=== PATIENT | male | born 1975 | race Caucasian/White ===

== ENCOUNTER 2019-03-27 08:49 | Outpatient (REF) | payer BC, SELFPAY ==
[2019-03-27 22:02] LABS: Anion Gap 10.6 mmol/L (3-11); BUN 17 mg/dL (7-18); CO2 28.4 mmol/L (21.0-32.0); CREATININE 0.98 mg/dL (0.70-1.30); Calcium 9.4 mg/dL (8.5-10.1); Chloride 105 mmol/L (98-107); Cholesterol 235 mg/dL (50-200); Glucose 116 mg/dL (70-100); HDL Cholesterol 41 mg/dL (40-60); LDL CHOLESTEROL 169 mg/dL (<100); Potassium 4.5 mmol/L (3.5-5.1); Sodium 144 mmol/L (136-145); Triglyceride 129 mg/dL (30-150)
== END 2019-03-27 09:09 ==
LOC: NCHCN 08:49
PROVIDERS: PCP Internal Medicine; Visit Provider Internal Medicine
DX: I10 Essential (primary) hypertension (principal); E78.5 Hyperlipidemia, unspecified
CPT/HCPCS: 80048; 80061; 83721

== ENCOUNTER 2019-04-23 10:49 | Outpatient (REF) | payer BC, SELFPAY ==
[2019-04-23 21:56] LABS: Anion Gap 13.2 mmol/L (3-11); BUN 15 mg/dL (7-18); CO2 24.8 mmol/L (21.0-32.0); CREATININE 0.95 mg/dL (0.70-1.30); Calcium 9.4 mg/dL (8.5-10.1); Chloride 103 mmol/L (98-107); Glucose 109 mg/dL (70-100); Potassium 4.3 mmol/L (3.5-5.1); Sodium 141 mmol/L (136-145)
== END 2019-04-23 11:09 ==
LOC: NCHCN 10:49
PROVIDERS: PCP Internal Medicine; Visit Provider Internal Medicine
DX: I10 Essential (primary) hypertension (principal)
CPT/HCPCS: 80048

== ENCOUNTER 2019-08-09 11:14 | Outpatient (REF) | payer BC, SELFPAY ==
[2019-08-09 21:31] LABS: Anion Gap 12.5 mmol/L (3-11); BUN 13 mg/dL (7-18); CO2 28.5 mmol/L (21.0-32.0); CREATININE 1.02 mg/dL (0.70-1.30); Calcium 9.4 mg/dL (8.5-10.1); Calculated LDL 84 mg/dL; Chloride 100 mmol/L (98-107); Cholesterol 149 mg/dL (50-200); Glucose 116 mg/dL (70-100); HDL Cholesterol 41 mg/dL (40-60); Potassium 3.7 mmol/L (3.5-5.1); Sodium 141 mmol/L (136-145); Triglyceride 120 mg/dL (30-150)
== END 2019-08-09 11:34 ==
LOC: NCHCN 11:14
PROVIDERS: PCP Internal Medicine; Visit Provider Internal Medicine
DX: I10 Essential (primary) hypertension (principal)
CPT/HCPCS: 80048; 80061

== ENCOUNTER 2020-04-03 10:07 | Outpatient (REF) | payer BC, SELFPAY ==
[2020-04-03 21:04] LABS: Anion Gap 9.3 mmol/L (3-11); BUN 16 mg/dL (7-18); CO2 26.7 mmol/L (21.0-32.0); CREATININE 0.96 mg/dL (0.70-1.30); Calcium 9.1 mg/dL (8.5-10.1); Chloride 105 mmol/L (98-107); Glucose 117 mg/dL (74-106); Potassium 4.2 mmol/L (3.5-5.1); Sodium 141 mmol/L (136-145)
[2020-04-03 21:14] LABS: Hemoglobin A1C 5.8 % (3.8-5.6)
== END 2020-04-03 10:27 ==
LOC: NCHCN 10:07
PROVIDERS: PCP Internal Medicine; Visit Provider Internal Medicine
DX: R73.03 Prediabetes (principal); I10 Essential (primary) hypertension
CPT/HCPCS: 80048; 83036

== ENCOUNTER 2020-09-22 11:07 | Emergency (ER) | payer BC, SELFPAY ==
[2020-09-22 11:20] VITALS: BP 163/92; PULSE 91; RESP 16; TEMP 36.3; O2SAT 97
--- NOTE | 2020-09-22 11:21 | W.ED.GENAD ---
Discharge Plan Disposition Patient Disposition: HOME Condition: Stable Discharge Details Clinical Impression: Postoperative edema, Left leg swelling, S/P hip replacement Primary Care Provider: Marianela Esteban ED Provider: Marietta Beckford Home Meds and New Rx's Prescriptions: Continued losartan 50 mg tablet 50 mg PO DAILY RF: 0 atorvastatin 20 mg tablet 20 mg PO DAILY RF: 0 gabapentin 300 mg capsule 300 mg PO QHS RF: 0 ondansetron 4 mg tablet,disintegrating 4 mg PO Q8H PRN PRNRF: 0 oxycodone 5 mg tablet 5 mg PO Q6H PRN PRNRF: 0 Discharge Instructions Instructions: Leg Edema (ED) Additional Instructions: Rest, ice, and elevate the affected area as much as possible. Take your oxycodone that you have at home as needed and directed for pain. Call your orthopedist today or tomorrow to notify them of your emergency department visit today and that your leg ultrasound was negative for a blood clot. Return immediately to the emergency department if you develop any worsening or new concerning symptoms such as fever, increased pain, redness, or swelling. Discharge Data Discharge Date/Time-TO BE ENTERED AT DEPARTURE: 09/22/20 13:30 Discharge Physician: Marietta Beckford Medical Decision Making 45-year-old male who is 1 week status post left total hip replacement secondary to arthritis who presents with left leg swelling and pain getting progressively worse since his surgery. He denies any significant calf pain but mainly complains of pain in the left knee and the left foot. He has been keeping it elevated without significant relief. BP hypertensive, remainder vitals within normal limits. He appears nontoxic. He has 1+ minimally pitting edema noted from the left knee down to the left foot. Compartments soft. Neurovascularly intact. Suspect expected postsurgical findings. Patient referred for ultrasound which is negative for DVT. History and presentation not consistent with cellulitis at this time. New mepilex dressing applied to L groin. Patient advised to continue to rest, ice and elevate as much as possible. Advised to call his orthopedist for follow-up and to return here with any concerns such as fever or development of erythema.. Medical Records Medical records reviewed: Yes I reviewed the patient's medical records. Imaging Data Radiologic Study: Radiologist's impression: US LOWER EXTREMITY VENOUS LT CLINICAL HISTORY: s/p L hip surgery, r/o dvt TECHNIQUE: Left lower extremity venous ultrasound performed using grayscale, color-flow, and spectral Doppler analysis. COMPARISON: No exams were available for comparison FINDINGS: The left common femoral, femoral and popliteal veins demonstrate normal compressibility, augmentation, and color Doppler. The posterior tibial veins are patent. The saphenofemoral junction is unremarkable. There is no evidence of a Arrington cyst. The soft tissues are unremarkable. IMPRESSION: No DVT. HPI General Mode of arrival: ambulatory. Date/Time Provider Initiated Documentation: 09/22/20 11:08. Limitations to Documentation: no limitations. Information obtained by: patient. HPI Narrative: Pt is a 45yo M who is 1 week s/p total L hip replacement who presents to the ED w/ a c/o L leg pain and swelling extending from his L knee down to his foot. He states he noticed bruising behind his left knee today. He states he has been keeping his leg elevated as much as possible. He called his orthopedist at [facility] yesterday and the day before for his symptoms and they advised him that the symptoms were expected and to keep his leg elevated as much as possible. He denies fever, chest pain, shortness of breath. He states he has been taking oxycodone for pain. He denies any new injury. Related Data Home Medications Medication Instructions Recorded Confirmed atorvastatin 20 mg PO DAILY 09/22/20 09/22/20 gabapentin 300 mg PO QHS 09/22/20 09/22/20 losartan 50 mg PO DAILY 09/22/20 09/22/20 ondansetron 4 mg PO Q8H PRN PRN 09/22/20 09/22/20 oxycodone 5 mg PO Q6H PRN PRN 09/22/20 09/22/20 Allergies Allergy/AdvReac Type Severity Reaction Status Date / Time No Known Allergies Allergy Unverified 09/22/20 11:25 Review of Systems All systems reviewed & are unremarkable except as noted in HPI and below Constitutional Constitutional: Reports as per HPI, Denies chills and Denies fever(s) Eyes Eyes: Denies blurry vision ENT Ears, Nose, Mouth, and Throat: Denies dizziness, Denies sore throat and Denies throat swelling Cardiovascular Cardiovascular: Denies chest pain and Denies dyspnea Respiratory Respiratory: Denies cough and Denies dyspnea Gastrointestinal Gastrointestinal: Denies abdominal pain, Denies diarrhea and Denies vomiting Genitourinary Genitourinary: Denies hematuria and Denies dysuria Musculoskeletal Musculoskeletal: Denies back pain, Denies numbness and Reports other (left leg swelling and pain extending from knee to foot) Integumentary/Breasts Skin/Breast: Denies lesions and Denies rash Neurologic Neurologic: Denies dizziness, Denies localized weakness and Denies numbness Allergic/Immunologic Allergic/Immunologic: Denies throat swelling PFSH Medical History (Updated 09/22/20 @ 12:59 by Marietta Beckford DO) Osteoarthritis Surgical History (Updated 09/22/20 @ 12:59 by Marietta Beckford DO) H/O shoulder surgery History of carpal tunnel release History of total hip replacement Social History Smoking/Tobacco Use Status: Former Tobacco Use Smoking risk assessment performed?: Yes Alcohol Intake: current Alcohol Intake frequency: holidays/special occasions only Drug use: Never Do you feel safe at home: Yes Do you feel safe in your relationship?: Yes Exam Const General: cooperative, healthy appearing and no acute distress HENMT Head: normal to inspection Mouth: oral mucosae normal Eyes General: appearance normal, both eyes and all related structures Neck Neck: normal visual inspection Resp Effort & Inspection: normal respiratory effort and able to speak in complete sentences Cardio Rate: regular rate Skin General skin exam: no rashes or lesions noted Neuro General: patient alert, patient awake and patient oriented x3 Motor: muscle tone normal throughout Extrem Other: 1+ minimally pitting edema extending from just above the left knee down to left foot. There is scattered ecchymosis noted behind the left knee but without hematoma or abscess. Compartments soft. No left calf tenderness. Left DP and PT pulses intact. Left hip incision site healing well without edema, erythema, drainage or bleeding. No pain with left hip range of motion. Psych Appearance: grossly normal Affect: normal affect
--- NOTE | 2020-09-22 11:30 | DI.US_ITS ---
EXAM: US LOWER EXTREMITY VENOUS LT CLINICAL HISTORY: s/p L hip surgery, r/o dvt TECHNIQUE: Left lower extremity venous ultrasound performed using grayscale, color-flow, and spectra l Doppler analysis. COMPARISON: No exams were available for comparison FINDINGS: The left common femoral, femoral and popliteal veins demonstrate normal compressibility, augmentation , and color Doppler. The posterior tibial veins are patent. The saphenofemoral junction is unremarka ble. There is no evidence of a Arrington cyst. The soft tissues are unremarkable. IMPRESSION: No DVT. DATA REPOSITORY:
[2020-09-22] MEDS: oxyCODONE 5 MG TAB PO (11:47)
[2020-09-22 11:51] VITALS: BP 141/81; PULSE 90; RESP 18; O2SAT 97
[2020-09-22 13:23] VITALS: BP 136/94; PULSE 89; TEMP 36.6; O2SAT 97
== END 2020-09-22 13:30 | disposition home or self-care (01) ==
PROVIDERS: Emergency Provider Physician Assistant; PCP Internal Medicine
DX: R60.0 Localized edema (principal); L76.82 Other postprocedural complications of skin and subcutaneous tissue; Z96.642 Presence of left artificial hip joint; Y83.1 Surgical operation with implant of artificial internal device as the cause of abnormal reaction of the patient, or of later complication, without mention of misadventure at the time of the procedure; M79.605 Pain in left leg; G89.18 Other acute postprocedural pain
CPT/HCPCS: 99284; 93971; 99285

== ENCOUNTER 2020-09-28 09:38 | Outpatient (REF) | payer BC, SELFPAY ==
[2020-09-28 22:26] LABS: Hemoglobin A1C 5.4 % (<5.7)
[2020-09-28 22:29] LABS: ALT 36 U/L (16-63); AST 25 U/L (15-37); Albumin 3.8 g/dL (3.4-5.0); Alkaline Phosphatase 63 U/L (46-116); Anion Gap 11.3 mmol/L (3-11); BUN 14 mg/dL (7-18); Bilirubin, Total 0.4 mg/dL (0.2-1.0); CO2 24.7 mmol/L (21.0-32.0); CREATININE 0.94 mg/dL (0.70-1.30); Calcium 8.9 mg/dL (8.5-10.1); Calculated LDL 71 mg/dL (<100); Chloride 107 mmol/L (98-107); Cholesterol 133 mg/dL (<200); Glucose 109 mg/dL (74-106); HDL Cholesterol 40 mg/dL (40-60); Potassium 4.4 mmol/L (3.5-5.1); Sodium 143 mmol/L (136-145); Total Protein 6.6 g/dL (6.4-8.2); Triglyceride 112 mg/dL (<150)
== END 2020-09-28 09:58 ==
LOC: NCHCN 09:38
PROVIDERS: PCP Internal Medicine; Visit Provider Internal Medicine
DX: R73.03 Prediabetes (principal); I10 Essential (primary) hypertension; E78.5 Hyperlipidemia, unspecified
CPT/HCPCS: 80053; 80061; 83036

== ENCOUNTER 2020-12-14 23:22 | Outpatient (REF) | payer BC, SELFPAY ==
[2020-12-16 14:03] LABS: COVID-19 RT-PCR UVMMC Result Negative (Negative)
== END 2020-12-14 23:23 | disposition home or self-care (01) ==
LOC: NCHCN 23:22
PROVIDERS: PCP Internal Medicine; Visit Provider Nurse Practitioner Family
DX: Z20.822 Contact with and (suspected) exposure to COVID-19 (principal)
CPT/HCPCS: U0003

== ENCOUNTER 2021-10-13 09:43 | Outpatient (REF) | payer OTHER, SELFPAY ==
[2021-10-15 11:24] LABS: COVID-19 RT-PCR UVMMC Result Negative (Negative)
== END 2021-10-13 09:44 | disposition home or self-care (01) ==
LOC: NCHCN 09:43
PROVIDERS: PCP Internal Medicine; Visit Provider Internal Medicine
DX: Z20.822 Contact with and (suspected) exposure to COVID-19 (principal)
CPT/HCPCS: U0003

== ENCOUNTER 2022-10-19 16:38 | Outpatient (REF) | payer OTHER, SELFPAY ==
[2022-10-19 22:12] LABS: TSH 3.45 uIU/mL (0.36-3.74)
[2022-10-20 19:46] LABS: PSA, Screening 0.4 ng/mL (<=2.5)
== END 2022-10-19 16:39 | disposition home or self-care (01) ==
LOC: NCHCN 16:38
PROVIDERS: PCP Internal Medicine; Visit Provider Internal Medicine
DX: N40.0 Benign prostatic hyperplasia without lower urinary tract symptoms (principal); Z12.5 Encounter for screening for malignant neoplasm of prostate
CPT/HCPCS: 84153; 84443

== ENCOUNTER 2022-10-20 17:42 | Outpatient (REF) | payer OTHER, SELFPAY ==
[2022-10-20 21:22] LABS: Bilirubin Negative (Negative); Blood Negative (Negative); Clarity Clear (Clear); Glucose Negative (Negative); Ketones Negative (Negative); Leukocyte Esterase Negative (Negative); Nitrite Negative (Negative); Specific Gravity >= 1.030 (1.005-1.025); Urobilinogen 0.2 EU/dL (Up TO 0.2); pH 6.5 (5-8)
== END 2022-10-20 17:43 | disposition home or self-care (01) ==
LOC: NCHCN 17:42
PROVIDERS: PCP Internal Medicine; Visit Provider Internal Medicine
DX: N40.0 Benign prostatic hyperplasia without lower urinary tract symptoms (principal); Z12.5 Encounter for screening for malignant neoplasm of prostate
CPT/HCPCS: 81003

== ENCOUNTER 2024-03-06 14:45 | Outpatient (REF) | payer BC, SELFPAY ==
[2024-03-06 22:15] LABS: HCT 45.1 % (40.0-50.0); HGB 15.7 g/dL (13.5-17.5); MCH 30.4 pg (27.0-33.0); MCHC 34.8 % (32.0-36.0); MCV 87 fL (80-95); MPV 9.5 fL (8.0-11.0); Platelet Count 192 10^3/uL (130-400); RBC 5.17 10^6/uL (4.36-5.78); RDW 12.1 % (11.8-14.1); RDW-SD 39.3 fL; WBC 8.26 10^3/uL (4.4-10.8)
[2024-03-06 22:21] LABS: ESR 4 mm/hr (0-15)
[2024-03-06 22:28] LABS: ALT 43 U/L (16-63); AST 23 U/L (15-37); Albumin 4.4 g/dL (3.4-5.0); Alkaline Phosphatase 69 U/L (46-116); Anion Gap 11.9 mmol/L (3-11); BUN 16 mg/dL (7-18); Bilirubin, Total 0.3 mg/dL (0.2-1.0); CO2 24.1 mmol/L (21.0-32.0); CREATININE 0.9 mg/dL (0.70-1.30); Chloride 106 mmol/L (98-107); Estimated GFR 104.05 (mL/min/1.73m2); Glucose 169 mg/dL (74-106); Potassium 4.2 mmol/L (3.5-5.1); Sodium 142 mmol/L (136-145); Total Protein 7.6 g/dL (6.4-8.2)
[2024-03-06 22:29] LABS: C-Reactive Protein < 0.50 mg/dL (<or=0.5)
== END 2024-03-06 14:46 | disposition home or self-care (01) ==
LOC: NCHCN 14:45
PROVIDERS: PCP Internal Medicine; Visit Provider Internal Medicine
DX: R51.9 Headache, unspecified (principal)
CPT/HCPCS: 80053; 85027; 85652; 86140

== ENCOUNTER 2025-10-15 11:52 | Outpatient (REF) | payer OTHER, SELFPAY ==
[2025-10-15 15:52] LABS: HCT 46.1 % (40.0-50.0); HGB 15.5 g/dL (13.5-17.5); MCH 28.5 pg (27.0-33.0); MCHC 33.6 % (32.0-36.0); MCV 85 fL (80-95); MPV 9.5 fL (8.0-11.0); Platelet Count 203 10^3/uL (130-400); RBC 5.43 10^6/uL (4.36-5.78); RDW 12.1 % (11.8-14.1); RDW-SD 37.2 fL; WBC 8.31 10^3/uL (4.4-10.8)
[2025-10-15 17:01] LABS: Hemoglobin A1C 5.2 % (<5.7)
[2025-10-15 18:04] LABS: ALT 29 U/L (10-49); AST 32 U/L (<34); Albumin 4.8 g/dL (3.2-5.0); Alkaline Phosphatase 73 U/L (46-116); Anion Gap 10 mmol/L (3-11); BUN 17 mg/dL (9-23); Bilirubin, Total 0.4 mg/dL (0.2-1.2); CO2 26.0 mmol/L (20.0-31.0); Calcium 9.3 mg/dL (8.3-10.6); Chloride 105 mmol/L (98-107); Cholesterol 135 mg/dL (<200); Glucose 86 mg/dL (74-106); HDL Cholesterol 64 mg/dL (>40); Potassium 4.4 mmol/L (3.5-5.1); Sodium 141 mmol/L (136-145); Total Protein 7.5 g/dL (5.7-8.2)
== END 2025-10-15 11:53 | disposition home or self-care (01) ==
LOC: NCHCN 11:52
PROVIDERS: PCP Internal Medicine; Visit Provider Internal Medicine
DX: I10 Essential (primary) hypertension (principal); E78.5 Hyperlipidemia, unspecified; R73.03 Prediabetes
CPT/HCPCS: 80053; 80061; 85027; 82043; 82570; 83036